=== PATIENT | male | born 1950 | race Caucasian/White ===

== ENCOUNTER 2020-01-16 07:19 | Outpatient (REF) | payer BC, SELFPAY ==
[2020-01-16 07:50] LABS: MANUAL DIFF FLAG NO
[2020-01-16 07:54] LABS: Basophils Absolute Auto 0.1 X10*3/uL (0.0-0.2); Basophils Percent Auto 0.7 % (0-2); Eosinophils Absolute Auto 0.6 X10*3/uL (0.0-0.4); Eosinophils Percent Auto 8.2 % (0-4); Hematocrit 47.2 % (42-52); Hemoglobin 15.1 g/dl (14.0-18.0); Imm Gran Abs Auto 0.04 X10*3/uL (0.00-0.03); Imm Gran Pct Auto 0.6 % (0.0-0.4); Lymphocytes Absolute Auto 0.9 X10*3/uL (1.2-4.9); Lymphocytes Percent Auto 12.8 % (20-40); Mean Corpuscular Hemoglobin 30.5 pg (27.0-33.0); Mean Corpuscular Volume 95.4 fL (80-98); Mean Platelet Volume 10.3 fL (9.4-12.4); Monocytes Absolute Auto 0.7 X10*3/uL (0.1-1.2); Monocytes Percent Auto 9.4 % (2-11); Neutrophils Absolute Auto 4.7 X10*3/uL (2.0-8.3); Neutrophils Percent Auto 68.3 % (45-73); Platelet Count 212 X10*3/uL (160-400); Red Blood Count 4.95 X10*6/uL (4.60-5.80); Red Cell Distribution Width 12.2 % (11.0-16.0); White Blood Count 6.9 X10*3/uL (4.8-10.8)
[2020-01-16 08:20] LABS: Alanine Aminotransferase 12 U/L (0-40); Albumin Level 3.9 g/dL (3.5-5.0); Alkaline Phosphatase 62 U/L (39-117); Anion Gap 10 (12-20); Aspartate Amino Transferase 21 U/L (5-37); Bilirubin Total 0.4 mg/dL (0.0-1.0); Blood Urea Nitrogen 20 mg/dL (9-16); Calcium 8.5 mg/dL (8.4-10.2); Carbon Dioxide 31 mmol/L (22-29); Chloride 103 mmol/L (96-108); Cholesterol 193 mg/dL; Estimated Glomerular Filt Rate 56; Glucose Fasting 95 mg/dL (60-99); HDL Cholesterol 42 mg/dL; LDL Cholesterol Calculated 129 mg/dl; Potassium 4.8 mmol/l (3.3-5.1); Sodium 139 mmol/L (135-145); Total Protein 6.6 g/dL (6.5-8.0); Triglycerides 111 mg/dL
[2020-01-16 08:42] LABS: Prostate Specific Antigen 1.63 ng/mL (<0.05-4.0)
== END 2020-01-16 07:20 | disposition home or self-care (01) ==
LOC: HO.LAB 07:19
PROVIDERS: Visit Provider Internal Medicine Medical Oncology
DX: I10 Essential (primary) hypertension (principal); E66.9 Obesity, unspecified
CPT/HCPCS: 36415; 80053; 80061; 84153; 85025

== ENCOUNTER 2020-09-06 06:44 | Outpatient (REF) | payer BC, SELFPAY ==
[2020-09-06 07:16] LABS: MANUAL DIFF FLAG NO
[2020-09-06 07:19] LABS: Basophils Percent Auto 0.6 % (0-2); Eosinophils Absolute Auto 0.5 X10*3/uL (0.0-0.4); Eosinophils Percent Auto 7.2 % (0-4); Hematocrit 46.6 % (42-52); Imm Gran Abs Auto 0.03 X10*3/uL (0.00-0.03); Imm Gran Pct Auto 0.5 % (0.0-0.4); Mean Corpuscular HGB Conc 32.2 g/dl (31.0-36.0); Mean Corpuscular Hemoglobin 30.8 pg (27.0-33.0); Mean Corpuscular Volume 95.7 fL (80-98); Mean Platelet Volume 10.9 fL (9.4-12.4); Monocytes Absolute Auto 0.6 X10*3/uL (0.1-1.2); Monocytes Percent Auto 8.7 % (2-11); Neutrophils Absolute Auto 4.5 X10*3/uL (2.0-8.3); Platelet Count 180 X10*3/uL (160-400); Red Blood Count 4.87 X10*6/uL (4.60-5.80); Red Cell Distribution Width 12.2 % (11.0-16.0); White Blood Count 6.7 X10*3/uL (4.8-10.8)
[2020-09-06 07:40] LABS: Alanine Aminotransferase 13 U/L (0-40); Albumin Level 3.9 g/dL (3.5-5.0); Alkaline Phosphatase 51 U/L (39-117); Anion Gap 13 (12-20); Aspartate Amino Transferase 21 U/L (5-37); Bilirubin Total 0.6 mg/dL (0.0-1.0); Blood Urea Nitrogen 19 mg/dL (9-16); Calcium 9.1 mg/dL (8.4-10.2); Carbon Dioxide 28 mmol/L (22-29); Chloride 106 mmol/L (96-108); Cholesterol 199 mg/dL; Estimated Glomerular Filt Rate 58; Glucose Random 100 mg/dL (60-115); HDL Cholesterol 39 mg/dL; LDL Cholesterol Calculated 139 mg/dl; Potassium 4.6 mmol/L (3.3-5.1); Sodium 142 mmol/L (135-145); Total Protein 6.4 g/dL (6.5-8.0); Triglycerides 105 mg/dL
[2020-09-06 08:01] LABS: Prostate Specific Antigen 1.61 ng/mL (<0.05-4.0)
== END 2020-09-06 06:45 | disposition home or self-care (01) ==
LOC: HO.LAB 06:44
PROVIDERS: PCP Internal Medicine Medical Oncology; Visit Provider Internal Medicine Medical Oncology
DX: Z12.5 Encounter for screening for malignant neoplasm of prostate (principal); I10 Essential (primary) hypertension; E66.9 Obesity, unspecified; G47.00 Insomnia, unspecified; Z87.891 Personal history of nicotine dependence
CPT/HCPCS: 36415; 80053; 80061; 84153; 85025

== ENCOUNTER 2021-08-20 06:35 | Outpatient (REF) | payer BC, SELFPAY ==
[2021-08-20 07:16] LABS: Basophils Absolute Auto 0.1 X10*3/uL (0.0-0.2); Basophils Percent Auto 0.7 % (0-2); Eosinophils Absolute Auto 0.4 X10*3/uL (0.0-0.4); Eosinophils Percent Auto 5.7 % (0-4); Hematocrit 46.7 % (42.0-52.0); Hemoglobin 14.8 g/dl (14.0-18.0); Imm Gran Abs Auto 0.04 X10*3/uL (0.00-0.03); Imm Gran Pct Auto 0.6 % (0.0-0.4); Lymphocytes Percent Auto 13.7 % (20-40); MANUAL DIFF FLAG NO; Mean Corpuscular HGB Conc 31.7 g/dl (31.0-36.0); Mean Corpuscular Volume 94.7 fL (80.0-98.0); Mean Platelet Volume 10.6 fL (9.4-12.4); Monocytes Absolute Auto 0.8 X10*3/uL (0.1-1.2); Monocytes Percent Auto 10.8 % (2-11); Neutrophils Percent Auto 68.5 % (45-73); Platelet Count 184 X10*3/uL (160-400); Red Blood Count 4.93 X10*6/uL (4.60-5.80); Red Cell Distribution Width 12.7 % (11.0-16.0); White Blood Count 7.2 X10*3/uL (4.8-10.8)
[2021-08-20 07:55] LABS: Alanine Aminotransferase 13 U/L (0-40); Albumin Level 3.9 g/dL (3.5-5.0); Alkaline Phosphatase 58 U/L (39-117); Anion Gap 10 (12-20); Aspartate Amino Transferase 21 U/L (5-37); Bilirubin Total 0.5 mg/dL (0.0-1.0); Blood Urea Nitrogen 19 mg/dL (9-16); Calcium 8.5 mg/dL (8.4-10.2); Carbon Dioxide 30 mmol/L (22-29); Chloride 105 mmol/L (96-108); Cholesterol 207 mg/dL; Estimated Glomerular Filt Rate 53; Glucose Fasting 101 mg/dL (60-99); HDL Cholesterol 45 mg/dL; LDL Cholesterol Calculated 151 mg/dl; Potassium 4.6 mmol/L (3.3-5.1); Sodium 140 mmol/L (135-145); Total Protein 6.6 g/dL (6.5-8.0); Triglycerides 58 mg/dL
[2021-08-20 08:14] LABS: Prostate Specific Antigen 1.66 ng/mL (<0.05-4.0)
== END 2021-08-20 06:36 | disposition home or self-care (01) ==
LOC: HO.LAB 06:35
PROVIDERS: PCP Internal Medicine Medical Oncology; Visit Provider Internal Medicine Medical Oncology
DX: I10 Essential (primary) hypertension (principal); E66.9 Obesity, unspecified; N40.0 Benign prostatic hyperplasia without lower urinary tract symptoms; Z12.5 Encounter for screening for malignant neoplasm of prostate
CPT/HCPCS: 36415; 80053; 80061; 84153; 85025

== ENCOUNTER 2021-12-27 07:37 | Outpatient (REF) | payer BC, SELFPAY ==
[2021-12-27 08:10] LABS: MANUAL DIFF FLAG NO
[2021-12-27 08:30] LABS: Basophils Percent Auto 0.6 % (0-2); Eosinophils Absolute Auto 0.5 X10*3/uL (0.0-0.4); Eosinophils Percent Auto 6.8 % (0-4); Hematocrit 45.8 % (42.0-52.0); Hemoglobin 14.7 g/dl (14.0-18.0); Imm Gran Abs Auto 0.03 X10*3/uL (0.00-0.03); Imm Gran Pct Auto 0.4 % (0.0-0.4); Lymphocytes Absolute Auto 0.9 X10*3/uL (1.2-4.9); Lymphocytes Percent Auto 12.4 % (20-40); Mean Corpuscular HGB Conc 32.1 g/dl (31.0-36.0); Mean Corpuscular Hemoglobin 30.4 pg (27.0-33.0); Mean Corpuscular Volume 94.6 fL (80.0-98.0); Mean Platelet Volume 10.7 fL (9.4-12.4); Monocytes Absolute Auto 0.7 X10*3/uL (0.1-1.2); Monocytes Percent Auto 10.2 % (2-11); Neutrophils Absolute Auto 5.1 x10*3/uL (2.0-8.3); Neutrophils Percent Auto 69.6 % (45-73); Platelet Count 190 X10*3/uL (160-400); Red Blood Count 4.84 X10*6/uL (4.60-5.80); Red Cell Distribution Width 12.3 % (11.0-16.0); White Blood Count 7.3 X10*3/uL (4.8-10.8)
[2021-12-27 09:12] LABS: Erythrocyte Sedimentation Rate 19 MM/HR (0-15)
[2021-12-27 09:21] LABS: Alanine Aminotransferase 12 U/L (0-40); Alkaline Phosphatase 56 U/L (39-117); Anion Gap 14 (12-20); Aspartate Amino Transferase 21 U/L (5-37); Bilirubin Total 0.6 mg/dL (0.0-1.0); Blood Urea Nitrogen 27 mg/dL (9-16); Calcium 8.9 mg/dL (8.4-10.2); Carbon Dioxide 26 mmol/L (22-29); Chloride 105 mmol/L (96-108); Estimated Glomerular Filt Rate 55; Glucose Random 98 mg/dL (60-115); Potassium 4.9 mmol/L (3.3-5.1); Sodium 140 mmol/L (135-145); Total Protein 6.7 g/dL (6.5-8.0)
== END 2021-12-27 07:38 | disposition home or self-care (01) ==
LOC: HO.LAB 07:37
PROVIDERS: PCP Internal Medicine Medical Oncology; Visit Provider Internal Medicine Medical Oncology
DX: I10 Essential (primary) hypertension (principal); N40.0 Benign prostatic hyperplasia without lower urinary tract symptoms; E66.09 Other obesity due to excess calories
CPT/HCPCS: 36415; 80053; 85025; 85652

== ENCOUNTER 2022-04-02 06:36 | Outpatient (REF) | payer BC, SELFPAY ==
[2022-04-02 06:46] LABS: MANUAL DIFF FLAG NO
[2022-04-02 07:32] LABS: Basophils Absolute Auto 0.1 X10*3/uL (0.0-0.2); Basophils Percent Auto 0.7 % (0-2); Eosinophils Absolute Auto 0.5 X10*3/uL (0.0-0.4); Eosinophils Percent Auto 7.9 % (0-4); Hematocrit 49.6 % (42.0-52.0); Hemoglobin 15.9 g/dl (14.0-18.0); Imm Gran Abs Auto 0.06 X10*3/uL (0.00-0.03); Imm Gran Pct Auto 0.9 % (0.0-0.4); Lymphocytes Absolute Auto 0.9 X10*3/uL (1.2-4.9); Lymphocytes Percent Auto 12.6 % (20-40); Mean Corpuscular HGB Conc 32.1 g/dl (31.0-36.0); Mean Corpuscular Hemoglobin 30.2 pg (27.0-33.0); Mean Corpuscular Volume 94.3 fL (80.0-98.0); Mean Platelet Volume 11.2 fL (9.4-12.4); Monocytes Absolute Auto 0.7 X10*3/uL (0.1-1.2); Neutrophils Absolute Auto 4.6 x10*3/uL (2.0-8.3); Neutrophils Percent Auto 67.9 % (45-73); Platelet Count 177 X10*3/uL (160-400); Red Blood Count 5.26 X10*6/uL (4.60-5.80); Red Cell Distribution Width 12.2 % (11.0-16.0); White Blood Count 6.8 X10*3/uL (4.8-10.8)
[2022-04-02 08:04] LABS: Alanine Aminotransferase 11 U/L (0-40); Albumin Level 4.1 g/dL (3.5-5.0); Alkaline Phosphatase 73 U/L (39-117); Anion Gap 12 (12-20); Aspartate Amino Transferase 19 U/L (5-37); Bilirubin Total 0.5 mg/dL (0.0-1.0); Blood Urea Nitrogen 19 mg/dL (9-16); Carbon Dioxide 29 mmol/L (22-29); Chloride 104 mmol/L (96-108); Cholesterol 198 mg/dL; Estimated Glomerular Filt Rate 51; Glucose Fasting 89 mg/dL (60-99); HDL Cholesterol 39 mg/dL; LDL Cholesterol Calculated 138 mg/dl; Potassium 4.8 mmol/L (3.3-5.1); Sodium 140 mmol/L (135-145); Total Protein 6.8 g/dL (6.5-8.0); Triglycerides 109 mg/dL
[2022-04-02 08:12] LABS: Prostate Specific Antigen 1.59 ng/mL (<0.05-4.0)
== END 2022-04-02 06:37 | disposition home or self-care (01) ==
LOC: HO.LAB 06:36
PROVIDERS: PCP Internal Medicine Medical Oncology; Visit Provider Internal Medicine Medical Oncology
DX: Z12.5 Encounter for screening for malignant neoplasm of prostate (principal); N40.0 Benign prostatic hyperplasia without lower urinary tract symptoms; I10 Essential (primary) hypertension
CPT/HCPCS: 36415; 80053; 80061; 84153; 85025

== ENCOUNTER 2023-01-14 13:40 | Emergency (ER) | payer BC, SELFPAY ==
--- NOTE | ~2023-01-14 | US_ITS ---
EXAMINATION: US VENOUS ULTRASOUND WITH DOPPLER LOWER EXTREMITY, RIGHT CLINICAL INFORMATION: Right foot swelling COMPARISON: None available. TECHNIQUE: Ultrasound of the deep veins is performed from the hip to the calf with compression sonography and color and pulse Doppler assessment. Spectral analysis with color-flow imaging is performed. FINDINGS: There is normal venous compression and respiratory variation and augmented flow. The visualized common femoral vein, superficial femoral vein, profunda femoral vein, popliteal vein, and the trifurcation region shows no evidence of deep venous thrombosis. There is no significant popliteal fossa cyst. If the patient's symptoms persist, followup ultrasound in 5 days 7 days might be of value to exclude proximal propagation from a non-visualized calf vein. US/US venous duplex LE RT IMPRESSION: No DVT demonstrated in the right lower extremity.
--- NOTE | ~2023-01-14 | XR_ITS ---
EXAMINATION: XR FOOT, RIGHT CLINICAL INFORMATION: Redness and swelling. Concern for osteomyelitis. COMPARISON: None available. TECHNIQUE: 3 views of the right foot. FINDINGS: There is no focal bone erosion or bone destruction. No abnormal periosteal reaction. No radiographic evidence for osteomyelitis. No air in the soft tissue. Mild to moderate joint narrowing of the IP joints of the toes and the first metatarsal phalangeal joint with small marginal bone spurs this joint space. Small plantar calcaneal spur. XR/XR foot RT 2V IMPRESSION: No radiographic evidence for osteomyelitis. If there is high clinical suspicion of osteomyelitis, MRI would be more sensitive.
[2023-01-14 14:04] VITALS: BP 152/78; PULSE 51; RESP 18; TEMP 36.6; O2SAT 97; BMI 32.2
--- NOTE | 2023-01-14 14:13 | ED_ITS ---
HPI - General Adult General Chief complaint: Extremity Injury, Lower Stated complaint: Right foot pain Time Seen by Provider: 01/14/23 15:41 Source: patient Mode of arrival: ambulatory Limitations: no limitations History of Present Illness HPI narrative: Patient is a 72-year-old male presenting to the emergency department with complaint of right great toe pain and swelling as well as redness for the past few days. He denies any fall or other injury. Denies any numbness or tingling to foot. Has been using ibuprofen with little relief. Denies any history of gout. MD complaint: Toe pain Onset (ago): day(s) Location: right and lower extremity Radiation: non-radiation Severity: severe Quality: aching Pain Consistency: constant Relieving factors: none Exacerbating factors: none Associated symptoms: denies other symptoms Treatments prior to arrival: NSAID Related Data Previous Rx's Medication Instructions Recorded prednisone 20 mg tablet 40 mg (2 x 20 mg) PO DAILY #10 tabs 01/14/23 Allergies Allergy/AdvReac Type Severity Reaction Status Date / Time Penicillins Allergy Mild Unknown Verified 01/14/23 14:00 Review of Systems 2 Review of Systems: As per HPI Yes all other systems are reviewed and are negative Constitutional: Constitutional: Reports as per HPI [facility] Social History Social History Advance Directives: No Physical Exam ED Vital Signs: Vital Signs - 24 hr 01/14/23 14:04 Temperature 97.8 F Pulse Rate 51 Respiratory Rate 18 Blood Pressure 152/78 H Pulse Oximetry 97 Oxygen Delivery Method Room Air BMI result Body Mass Index 32.2 Vital signs have been reviewed and appear to be correct. Blood pressure elevated. Heart rate normal. Respiratory rate normal. Temperature normal. Oxygen saturation normal. Const General: cooperative, healthy appearing and no acute distress Orientation/consciousness: oriented to person, oriented to place, oriented to time and patient oriented x3 Limitations: no limitations HENMT Head: Yes normocephalic and Yes atraumatic Ears: external ears normal General nose exam: Normal external nose present Face and sinus: Yes face symmetric Mouth: oropharynx normal and moist mucous membranes Throat: Yes uvula midline Eyes Pupils: Equal, round and reactive pupils present Neck Neck: Yes normal visual inspection and Yes supple Resp Effort & Inspection: normal respiratory effort and able to speak in complete sentences Auscultation: clear to auscultation bilaterally Cardio Rate: regular rate Rhythm: regular rhythm Heart sounds: S1 normal heart sound present and S2 normal heart sound present GI Palpation (GI): Soft to palpation and nontender Auscultation: normoactive bowel sounds General: Yes no CVA tenderness Back/Spine/Pelvis Back: no CVA tenderness Skin General skin exam: elasticity normal and turgor normal Neuro General: oriented to person, oriented to place, oriented to time, patient oriented x3, moves all extremities, no focal motor deficits and CN's II-XI intact bilaterally Cranial nerves: Yes Equal, round and reactive pupils present Cognition (Neuro): normal cognition Extrem General: Yes full ROM, Yes no pedal edema and Yes no calf tenderness Right lower extremity: foot Details: abnormal to inspection Details: erythematous (MTP and IP joint of first toe), tenderness Location: of the great toe Location: at the MTP joint and at the IP joint, toes with normal ROM and vascular exam Details: dorsalis pedis pulse present, posterior tibial pulse present and normal capillary refill; no unusual warmth Psych Mental Status: mental status grossly normal Affect: normal affect Thought process: Normal thought process present Course Course Course Narrative: RME: 72 yold male presents to the ED for right foot redness and swelling starting from near big toe. Foot swelling and redness. labs, Xray, and Ultrasoun dordered Medical Decision Making Medical Decision Making MDM Narrative: Patient is a 72-year-old male presenting to the emergency department with complaint of right great toe pain and swelling as well as redness for the past few days. On exam patient is awake, A+Ox3, VS WNL, afebrile, normal neurological exam without focal deficits, physical exam findings as above. Given reported symptoms and physical exam findings, initial differential includes gout flare, fracture, osteoarthritis. No concern for DVT but ultrasound ordered by triage provider. Labs notable for elevated uric acid, no leukocytosis, mildly elevated CRP. BUN and creatnine elevated but this appears consistent with baseline. X-ray notable for no fracture or osteomyelitis. No evidence of DVT on ultrasound. My interpretation is in agreement with the radiologist's interpretation. Feel symptoms are likely related to acute gout flare, will treat patient with short course of prednisone. Instructed patient to follow-up with PCP as he has no known history of gout. Discussed diet modifications with patient. Return precautions discussed at bedside. Patient verbalized understanding of and agreement with plan. Differential Diagnosis Differential Diagnoses: The differential diagnosis associated with the presentation includes As per MDM. Admission/Observation Consideration of admission/observation: Escalation of care including admission/observation considered Lab Data [facility] Lab Attestation statement: I reviewed the patient's lab results. As per MDM. 01/14/23 15:12 01/14/23 15:12 Labs: Lab Results 01/14/23 Range/Units 15:12 WBC 6.9 (4.8-10.8) X10*3/uL RBC 4.79 (4.60-5.80) X10*6/uL Hgb 14.6 (14.0-18.0) g/dl Hct 45.2 (42.0-52.0) % MCV 94.4 (80.0-98.0) fL MCH 30.5 (27.0-33.0) pg MCHC 32.3 (31.0-36.0) g/dl RDW 12.7 (11.0-16.0) % Plt Count 174 (160-400) X10*3/uL MPV 10.4 (9.4-12.4) fL Immature Gran % (Auto) 0.3 (0.0-0.4) % Neut % (Auto) 67.9 (45-73) % Lymph % (Auto) 14.3 L (20-40) % [place] % (Auto) 11.1 H (2-11) % Eos % (Auto) 6.0 H (0-4) % Baso % (Auto) 0.4 (0-2) % Lymph # (Auto) 1.0 L (1.2-4.9) X10*3/uL [place] # (Auto) 0.8 (0.1-1.2) X10*3/uL Eos # (Auto) 0.4 (0.0-0.4) X10*3/uL Baso # (Auto) 0.0 (0.0-0.2) X10*3/uL Abs Immat Gran (auto) 0.02 (0.00-0.03) X10*3/uL Absolute Neuts (auto) 4.7 (2.0-8.3) x10*3/uL Absolute Nucleated RBC 0.000 (0.0-0.012) X10*3/uL Nucleated RBC % (auto) 0.0 (0.0-0.2) /100WBC ESR 17 H (0-15) MM/HR Sodium 142 (135-145) mmol/L Potassium 4.2 (3.3-5.1) mmol/L Chloride 106 (96-108) mmol/L Carbon Dioxide 28 (22-29) mmol/L Anion Gap 12 (12-20) BUN 25 H (9-16) mg/dL Creatinine 1.47 H (0.5-1.4) mg/dL Estim Creat Clear Calc 55.0 Estimated GFR 47 Random Glucose 95 (60-115) mg/dL Uric Acid 8.7 H (3.4-7.0) mg/dL Calcium 8.8 (8.4-10.2) mg/dL Total Bilirubin 0.4 (0.0-1.0) mg/dL AST 18 (5-37) U/L ALT 11 (0-40) U/L Alkaline Phosphatase 55 (39-117) U/L C-Reactive Protein 0.85 H (< or = 0.50) mg/dL Total Protein 7.0 (6.5-8.0) g/dL Albumin 3.9 (3.5-5.0) g/dL Independent Interpretation I performed an independent interpretation of an: Plain X-Ray and Ultrasound Interpretation: No evidence of fracture or osteomyelitis on x-ray, no evidence of DVT on ultrasound Radiology Impression Discussion of test interpretation with radiology: I have reviewed the radiologist's reading. Radiologist Impression: XR/XR foot RT 2V IMPRESSION: No radiographic evidence for osteomyelitis. If there is high clinical suspicion of osteomyelitis, MRI would be more sensitive. US/US venous duplex LE RT IMPRESSION: No DVT demonstrated in the right lower extremity. External Record Review External record reviewed: Inpatient record, Office record and Outpatient record Prescription Management I considered prescription management with: Other Discharge Plan Discharge Clinical Impression: Gout involving toe of right foot Qualifiers: Gout etiology: unspecified cause Chronicity: acute Qualified Code(s): M10.9 - Gout, unspecified Patient Disposition: Home, Self-Care Instructions: Low Purine Diet (ED), Gout (ED) Additional Instructions: You were evaluated in the emergency department today for right great toe pain which is likely related to a gout flare. It is possible this is due to dehydration, please increase your fluid intake over the next week. You are being prescribed a short course of steroids called prednisone, please complete the full course as prescribed. Contact your primary care provider for an appointment this week. Return to the emergency department if you develop worsening pain, increased swelling, redness streaking up your leg, fever 100.4? F or greater, or any other concerning symptoms. Prescriptions: New prednisone 20 mg tablet 40 mg PO DAILY Qty: 10 0RF Interventions: ED Discharge Assessment Last Done: 01/14/23 16:16 Discharge Date/Time: 01/14/23 16:18
[2023-01-14 15:18] LABS: MANUAL DIFF FLAG NO
[2023-01-14 15:19] LABS: Basophils Percent Auto 0.4 % (0-2); Eosinophils Absolute Auto 0.4 X10*3/uL (0.0-0.4); Hematocrit 45.2 % (42.0-52.0); Hemoglobin 14.6 g/dl (14.0-18.0); Imm Gran Abs Auto 0.02 X10*3/uL (0.00-0.03); Imm Gran Pct Auto 0.3 % (0.0-0.4); Lymphocytes Percent Auto 14.3 % (20-40); Mean Corpuscular HGB Conc 32.3 g/dl (31.0-36.0); Mean Corpuscular Hemoglobin 30.5 pg (27.0-33.0); Mean Corpuscular Volume 94.4 fL (80.0-98.0); Mean Platelet Volume 10.4 fL (9.4-12.4); Monocytes Absolute Auto 0.8 X10*3/uL (0.1-1.2); Monocytes Percent Auto 11.1 % (2-11); Neutrophils Absolute Auto 4.7 x10*3/uL (2.0-8.3); Neutrophils Percent Auto 67.9 % (45-73); Platelet Count 174 X10*3/uL (160-400); Red Blood Count 4.79 X10*6/uL (4.60-5.80); Red Cell Distribution Width 12.7 % (11.0-16.0); White Blood Count 6.9 X10*3/uL (4.8-10.8)
[2023-01-14 15:32] LABS: Alanine Aminotransferase 11 U/L (0-40); Albumin Level 3.9 g/dL (3.5-5.0); Alkaline Phosphatase 55 U/L (39-117); Anion Gap 12 (12-20); Aspartate Amino Transferase 18 U/L (5-37); Bilirubin Total 0.4 mg/dL (0.0-1.0); Blood Urea Nitrogen 25 mg/dL (9-16); C Reactive Protein 0.85 mg/dL (< or = 0.50); Calcium 8.8 mg/dL (8.4-10.2); Carbon Dioxide 28 mmol/L (22-29); Chloride 106 mmol/L (96-108); Estimated Glomerular Filt Rate 47; Glucose Random 95 mg/dL (60-115); Potassium 4.2 mmol/L (3.3-5.1); Sodium 142 mmol/L (135-145); Uric Acid 8.7 mg/dL (3.4-7.0)
[2023-01-14 16:13] LABS: Erythrocyte Sedimentation Rate 17 MM/HR (0-15)
== END 2023-01-14 16:18 | disposition home or self-care (01) ==
PROVIDERS: Physician Assistant; Emergency Provider Emergency Medicine; PCP Internal Medicine Medical Oncology
DX: M10.9 Gout, unspecified (principal); M79.89 Other specified soft tissue disorders; M79.671 Pain in right foot
CPT/HCPCS: 36415; 73620; 80053; 84550; 85025; 85652; 86140; 93971; 99282; 99284

== ENCOUNTER 2023-01-22 07:08 | Outpatient (REF) | payer BC, SELFPAY ==
[2023-01-22 07:23] LABS: MANUAL DIFF FLAG NO
[2023-01-22 07:30] LABS: Basophils Percent Auto 0.5 % (0-2); Eosinophils Absolute Auto 0.5 X10*3/uL (0.0-0.4); Eosinophils Percent Auto 6.7 % (0-4); Hemoglobin 14.6 g/dl (14.0-18.0); Imm Gran Abs Auto 0.09 X10*3/uL (0.00-0.03); Imm Gran Pct Auto 1.2 % (0.0-0.4); Lymphocytes Percent Auto 12.9 % (20-40); Mean Corpuscular HGB Conc 31.7 g/dl (31.0-36.0); Mean Corpuscular Volume 94.7 fL (80.0-98.0); Mean Platelet Volume 10.6 fL (9.4-12.4); Monocytes Absolute Auto 0.7 X10*3/uL (0.1-1.2); Monocytes Percent Auto 9.8 % (2-11); Neutrophils Absolute Auto 5.2 x10*3/uL (2.0-8.3); Neutrophils Percent Auto 68.9 % (45-73); Platelet Count 173 X10*3/uL (160-400); Red Blood Count 4.86 X10*6/uL (4.60-5.80); Red Cell Distribution Width 12.9 % (11.0-16.0); White Blood Count 7.5 X10*3/uL (4.8-10.8)
[2023-01-22 07:59] LABS: Anion Gap 9 (12-20); Blood Urea Nitrogen 29 mg/dL (9-16); Carbon Dioxide 29 mmol/L (22-29); Chloride 106 mmol/L (96-108); Estimated Glomerular Filt Rate 55; Glucose Fasting 99 mg/dL (60-99); Potassium 4.2 mmol/L (3.3-5.1); Sodium 140 mmol/L (135-145)
[2023-01-22 08:00] LABS: Alanine Aminotransferase 11 U/L (0-40); Albumin Level 3.7 g/dL (3.5-5.0); Alkaline Phosphatase 52 U/L (39-117); Aspartate Amino Transferase 19 U/L (5-37); Bilirubin Total 0.5 mg/dL (0.0-1.0); Cholesterol 198 mg/dL (<200); HDL Cholesterol 42 mg/dL (>40); LDL Cholesterol Calculated 139 mg/dL (<100); Total Protein 6.6 g/dL (6.5-8.0); Triglycerides 87 mg/dL (<150)
== END 2023-01-22 07:09 | disposition home or self-care (01) ==
LOC: HO.LAB 07:08
PROVIDERS: Visit Provider Internal Medicine Medical Oncology
DX: I10 Essential (primary) hypertension (principal); E66.9 Obesity, unspecified
CPT/HCPCS: 36415; 80053; 80061; 85025

== ENCOUNTER 2023-04-07 07:08 | Outpatient (REF) | payer BC, SELFPAY ==
[2023-04-07 07:21] LABS: MANUAL DIFF FLAG NO
[2023-04-07 07:46] LABS: Basophils Absolute Auto 0.1 X10*3/uL (0.0-0.2); Basophils Percent Auto 0.6 % (0-2); Eosinophils Absolute Auto 0.2 X10*3/uL (0.0-0.4); Eosinophils Percent Auto 2.1 % (0-4); Hematocrit 47.8 % (42.0-52.0); Hemoglobin 15.3 g/dl (14.0-18.0); Imm Gran Abs Auto 0.05 X10*3/uL (0.00-0.03); Imm Gran Pct Auto 0.6 % (0.0-0.4); Lymphocytes Absolute Auto 1.3 X10*3/uL (1.2-4.9); Lymphocytes Percent Auto 14.7 % (20-40); Mean Corpuscular Hemoglobin 30.7 pg (27.0-33.0); Mean Corpuscular Volume 95.8 fL (80.0-98.0); Mean Platelet Volume 11.1 fL (9.4-12.4); Monocytes Absolute Auto 0.9 X10*3/uL (0.1-1.2); Monocytes Percent Auto 10.5 % (2-11); Neutrophils Absolute Auto 6.1 x10*3/uL (2.0-8.3); Neutrophils Percent Auto 71.5 % (45-73); Platelet Count 194 X10*3/uL (160-400); Red Blood Count 4.99 X10*6/uL (4.60-5.80); Red Cell Distribution Width 12.5 % (11.0-16.0); White Blood Count 8.5 X10*3/uL (4.8-10.8)
[2023-04-07 07:58] LABS: Alanine Aminotransferase 15 U/L (0-40); Albumin Level 3.9 g/dL (3.5-5.0); Alkaline Phosphatase 59 U/L (39-117); Anion Gap 12 (12-20); Aspartate Amino Transferase 20 U/L (5-37); Bilirubin Total 0.5 mg/dL (0.0-1.0); Blood Urea Nitrogen 34 mg/dL (9-16); Carbon Dioxide 28 mmol/L (22-29); Chloride 106 mmol/L (96-108); Estimated Glomerular Filt Rate 40; Glucose Random 92 mg/dL (60-115); Potassium 4.2 mmol/L (3.3-5.1); Sodium 142 mmol/L (135-145); Total Protein 7.1 g/dL (6.5-8.0)
[2023-04-07 08:15] LABS: Prostate Specific Antigen 1.73 ng/mL (<0.05-4.0)
== END 2023-04-07 07:09 | disposition home or self-care (01) ==
LOC: HO.LAB 07:08
PROVIDERS: PCP Internal Medicine Medical Oncology; Visit Provider Internal Medicine Medical Oncology
DX: Z12.5 Encounter for screening for malignant neoplasm of prostate (principal); N40.0 Benign prostatic hyperplasia without lower urinary tract symptoms; E66.9 Obesity, unspecified; I10 Essential (primary) hypertension; H61.20 Impacted cerumen, unspecified ear
CPT/HCPCS: 36415; 80053; 84153; 84550; 85025

== ENCOUNTER 2023-06-08 07:02 | Outpatient (REF) | payer BC, SELFPAY ==
[2023-06-08 07:19] LABS: MANUAL DIFF FLAG NO
[2023-06-08 07:55] LABS: Basophils Absolute Auto 0.1 X10*3/uL (0.0-0.2); Basophils Percent Auto 0.8 % (0-2); Eosinophils Absolute Auto 0.5 X10*3/uL (0.0-0.4); Eosinophils Percent Auto 7.7 % (0-4); Hematocrit 48.7 % (42.0-52.0); Hemoglobin 15.6 g/dl (14.0-18.0); Imm Gran Abs Auto 0.05 X10*3/uL (0.00-0.03); Imm Gran Pct Auto 0.8 % (0.0-0.4); Lymphocytes Absolute Auto 0.8 X10*3/uL (1.2-4.9); Mean Corpuscular Hemoglobin 31.1 pg (27.0-33.0); Mean Corpuscular Volume 97.2 fL (80.0-98.0); Monocytes Absolute Auto 0.6 X10*3/uL (0.1-1.2); Monocytes Percent Auto 9.7 % (2-11); Neutrophils Absolute Auto 4.4 x10*3/uL (2.0-8.3); Platelet Count 186 X10*3/uL (160-400); Red Blood Count 5.01 X10*6/uL (4.60-5.80); White Blood Count 6.4 X10*3/uL (4.8-10.8)
[2023-06-08 08:29] LABS: Alanine Aminotransferase 14 U/L (0-40); Albumin Level 3.8 g/dL (3.5-5.0); Alkaline Phosphatase 68 U/L (39-117); Anion Gap 11 (12-20); Aspartate Amino Transferase 20 U/L (5-37); Bilirubin Total 0.5 mg/dL (0.0-1.0); Blood Urea Nitrogen 27 mg/dL (9-16); Calcium 9.3 mg/dL (8.4-10.2); Carbon Dioxide 31 mmol/L (22-29); Chloride 107 mmol/L (96-108); Estimated Glomerular Filt Rate 43; Glucose Random 92 mg/dL (60-115); Potassium 4.5 mmol/L (3.3-5.1); Sodium 144 mmol/L (135-145); Total Protein 7.1 g/dL (6.5-8.0); Uric Acid 7.6 mg/dL (3.4-7.0)
== END 2023-06-08 07:03 | disposition home or self-care (01) ==
LOC: HO.LAB 07:02
PROVIDERS: PCP Internal Medicine Medical Oncology; Visit Provider Internal Medicine Medical Oncology
DX: Z00.00 Encounter for general adult medical examination without abnormal findings (principal); I10 Essential (primary) hypertension; N40.0 Benign prostatic hyperplasia without lower urinary tract symptoms; E66.9 Obesity, unspecified
CPT/HCPCS: 36415; 80053; 84550; 85025

== ENCOUNTER 2023-09-29 07:11 | Outpatient (REF) | payer BC, SELFPAY ==
[2023-09-29 07:26] LABS: MANUAL DIFF FLAG NO
[2023-09-29 08:29] LABS: Basophils Absolute Auto 0.1 X10*3/uL (0.0-0.2); Basophils Percent Auto 1.1 % (0-2); Eosinophils Absolute Auto 0.6 X10*3/uL (0.0-0.4); Eosinophils Percent Auto 9.2 % (0-4); Hematocrit 50.1 % (42.0-52.0); Hemoglobin 16.1 g/dl (14.0-18.0); Imm Gran Abs Auto 0.06 X10*3/uL (0.00-0.03); Imm Gran Pct Auto 0.9 % (0.0-0.4); Lymphocytes Percent Auto 14.5 % (20-40); Mean Corpuscular HGB Conc 32.1 g/dl (31.0-36.0); Mean Corpuscular Hemoglobin 31.4 pg (27.0-33.0); Mean Corpuscular Volume 97.7 fL (80.0-98.0); Monocytes Absolute Auto 0.6 X10*3/uL (0.1-1.2); Monocytes Percent Auto 9.8 % (2-11); Neutrophils Absolute Auto 4.2 x10*3/uL (2.0-8.3); Neutrophils Percent Auto 64.5 % (45-73); Platelet Count 180 X10*3/uL (160-400); Red Blood Count 5.13 X10*6/uL (4.60-5.80); Red Cell Distribution Width 12.8 % (11.0-16.0); White Blood Count 6.6 X10*3/uL (4.8-10.8)
[2023-09-29 09:01] LABS: Alanine Aminotransferase 5 U/L (0-40); Alkaline Phosphatase 69 U/L (39-117); Anion Gap 14 (12-20); Aspartate Amino Transferase 17 U/L (5-37); Bilirubin Total 0.6 mg/dL (0.0-1.0); Blood Urea Nitrogen 30 mg/dL (9-16); Calcium 9.6 mg/dL (8.4-10.2); Carbon Dioxide 27 mmol/L (22-29); Chloride 104 mmol/L (96-108); Cholesterol 179 mg/dL (<200); Estimated Glomerular Filt Rate 41; Glucose Fasting 100 mg/dL (60-99); HDL Cholesterol 45 mg/dL (>40); LDL Cholesterol Calculated 117 mg/dL (<100); Potassium 4.2 mmol/L (3.3-5.1); Sodium 141 mmol/L (135-145); Total Protein 7.2 g/dL (6.5-8.0); Triglycerides 89 mg/dL (<150); Uric Acid 6.3 mg/dL (3.4-7.0)
== END 2023-09-29 07:12 | disposition home or self-care (01) ==
LOC: HO.LAB 07:11
PROVIDERS: PCP Internal Medicine Medical Oncology; Visit Provider Internal Medicine Medical Oncology
DX: I10 Essential (primary) hypertension (principal); E66.9 Obesity, unspecified; N40.0 Benign prostatic hyperplasia without lower urinary tract symptoms
CPT/HCPCS: 36415; 80053; 80061; 84550; 85025

== ENCOUNTER 2024-04-10 06:50 | Outpatient (REF) | payer BC, SELFPAY ==
[2024-04-10 07:03] LABS: MANUAL DIFF FLAG NO
[2024-04-10 07:15] LABS: Basophils Absolute Auto 0.1 X10*3/uL (0.0-0.2); Basophils Percent Auto 0.7 % (0-2); Eosinophils Absolute Auto 0.5 X10*3/uL (0.0-0.4); Eosinophils Percent Auto 6.4 % (0-4); Hematocrit 47.5 % (42.0-52.0); Hemoglobin 15.3 g/dl (14.0-18.0); Imm Gran Abs Auto 0.04 X10*3/uL (0.00-0.03); Imm Gran Pct Auto 0.5 % (0.0-0.4); Lymphocytes Absolute Auto 0.9 X10*3/uL (1.2-4.9); Lymphocytes Percent Auto 11.9 % (20-40); Mean Corpuscular HGB Conc 32.2 g/dl (31.0-36.0); Mean Corpuscular Hemoglobin 30.6 pg (27.0-33.0); Mean Platelet Volume 11.2 fL (9.4-12.4); Monocytes Absolute Auto 0.7 X10*3/uL (0.1-1.2); Monocytes Percent Auto 9.4 % (2-11); Neutrophils Absolute Auto 5.4 x10*3/uL (2.0-8.3); Neutrophils Percent Auto 71.1 % (45-73); Platelet Count 159 X10*3/uL (160-400); Red Cell Distribution Width 12.8 % (11.0-16.0); White Blood Count 7.6 X10*3/uL (4.8-10.8)
[2024-04-10 08:50] LABS: Alanine Aminotransferase 19 U/L (0-40); Alkaline Phosphatase 74 U/L (39-117); Anion Gap 12 (12-20); Aspartate Amino Transferase 28 U/L (5-37); Bilirubin Total 0.6 mg/dL (0.0-1.0); Blood Urea Nitrogen 23 mg/dL (9-16); Calcium 8.6 mg/dL (8.4-10.2); Carbon Dioxide 24 mmol/L (22-29); Chloride 109 mmol/L (96-108); Cholesterol 157 mg/dL (<200); Estimated Glomerular Filt Rate 54; Glucose Fasting 91 mg/dL (60-99); HDL Cholesterol 42 mg/dL (>40); LDL Cholesterol Calculated 103 mg/dL (<100); Potassium 4.3 mmol/L (3.3-5.1); Sodium 141 mmol/L (135-145); Total Protein 7.4 g/dL (6.5-8.0); Triglycerides 62 mg/dL (<150)
== END 2024-04-10 06:51 | disposition home or self-care (01) ==
LOC: HO.LAB 06:50
PROVIDERS: PCP Internal Medicine Medical Oncology; Visit Provider Internal Medicine Medical Oncology
DX: I10 Essential (primary) hypertension (principal); E66.9 Obesity, unspecified
CPT/HCPCS: 36415; 80053; 80061; 85025

== ENCOUNTER 2024-07-20 07:05 | Outpatient (REF) | payer BC, SELFPAY ==
[2024-07-20 07:21] LABS: MANUAL DIFF FLAG NO
[2024-07-20 07:43] LABS: Basophils Absolute Auto 0.1 X10*3/uL (0.0-0.2); Basophils Percent Auto 0.8 % (0-2); Eosinophils Absolute Auto 0.4 X10*3/uL (0.0-0.4); Hematocrit 49.5 % (42.0-52.0); Hemoglobin 15.6 g/dl (14.0-18.0); Imm Gran Abs Auto 0.08 X10*3/uL (0.00-0.03); Imm Gran Pct Auto 1.2 % (0.0-0.4); Lymphocytes Absolute Auto 0.9 X10*3/uL (1.2-4.9); Mean Corpuscular HGB Conc 31.5 g/dl (31.0-36.0); Mean Corpuscular Hemoglobin 30.4 pg (27.0-33.0); Mean Corpuscular Volume 96.3 fL (80.0-98.0); Mean Platelet Volume 11.1 fL (9.4-12.4); Monocytes Absolute Auto 0.8 X10*3/uL (0.1-1.2); Monocytes Percent Auto 11.5 % (2-11); Neutrophils Absolute Auto 4.3 x10*3/uL (2.0-8.3); Neutrophils Percent Auto 66.5 % (45-73); Platelet Count 160 X10*3/uL (160-400); Red Blood Count 5.14 X10*6/uL (4.60-5.80); Red Cell Distribution Width 13.2 % (11.0-16.0); White Blood Count 6.5 X10*3/uL (4.8-10.8)
[2024-07-20 08:10] LABS: Alanine Aminotransferase 11 U/L (0-40); Albumin Level 4.1 g/dL (3.5-5.0); Alkaline Phosphatase 69 U/L (39-117); Anion Gap 10 (12-20); Aspartate Amino Transferase 21 U/L (5-37); Bilirubin Total 0.6 mg/dL (0.0-1.0); Blood Urea Nitrogen 22 mg/dL (9-16); Calcium 9.2 mg/dL (8.4-10.2); Carbon Dioxide 28 mmol/L (22-29); Chloride 108 mmol/L (96-108); Cholesterol 195 mg/dL (<200); Estimated Glomerular Filt Rate 53; Glucose Fasting 90 mg/dL (60-99); HDL Cholesterol 48 mg/dL (>40); LDL Cholesterol Calculated 129 mg/dL (<100); Potassium 4.4 mmol/L (3.3-5.1); Sodium 142 mmol/L (135-145); Total Protein 7.1 g/dL (6.5-8.0); Triglycerides 92 mg/dL (<150)
[2024-07-20 08:17] LABS: Uric Acid 7.9 mg/dL (3.4-7.0)
[2024-07-20 08:27] LABS: Prostate Specific Antigen 2.35 ng/mL (<0.05-4.0)
== END 2024-07-20 07:06 | disposition home or self-care (01) ==
LOC: HO.LAB 07:05
PROVIDERS: PCP Internal Medicine Medical Oncology; Visit Provider Internal Medicine Medical Oncology
DX: I10 Essential (primary) hypertension (principal); E66.9 Obesity, unspecified; E66.3 Overweight; M10.071 Idiopathic gout, right ankle and foot; R35.1 Nocturia; Z12.5 Encounter for screening for malignant neoplasm of prostate
CPT/HCPCS: 36415; 80053; 80061; 84153; 84550; 85025

== ENCOUNTER 2025-01-24 07:53 | Outpatient (REF) | payer MEDICARE, SELFPAY ==
[2025-01-24 08:05] LABS: MANUAL DIFF FLAG NO
[2025-01-24 08:39] LABS: Hematocrit 47.8 % (42.0-52.0); Hemoglobin 15.2 g/dl (14.0-18.0); Imm Gran Abs Auto 0.03 X10*3/uL (0.00-0.03); Imm Gran Pct Auto 0.5 % (0.0-0.4); Lymphocytes Absolute Auto 0.9 X10*3/uL (1.2-4.9); Mean Corpuscular HGB Conc 31.8 g/dl (31.0-36.0); Mean Corpuscular Hemoglobin 30.2 pg (27.0-33.0); Mean Corpuscular Volume 95.0 fL (80.0-98.0); NRBC Abs Auto 0.000 X10*3/uL (0.0-0.012); NRBC Pct Auto 0.0 /100WBC (0.0-0.2); Platelet Count 158 X10*3/uL (160-400); Red Blood Count 5.03 X10*6/uL (4.60-5.80); White Blood Count 6.4 X10*3/uL (4.8-10.8)
[2025-01-24 09:04] LABS: Alanine Aminotransferase 18 U/L (0-40); Albumin Level 4.3 g/dL (3.5-5.0); Alkaline Phosphatase 74 U/L (39-117); Anion Gap 12 (12-20); Aspartate Amino Transferase 31 U/L (5-37); Blood Urea Nitrogen 24 mg/dL (9-16); Calcium 9.0 mg/dL (8.4-10.2); Carbon Dioxide 26 mmol/L (22-29); Chloride 108 mmol/L (96-108); Cholesterol 172 mg/dL (<200); Estimated Glomerular Filt Rate 51; HDL Cholesterol 46 mg/dL (>40); Potassium 4.3 mmol/L (3.3-5.1); Sodium 142 mmol/L (135-145); Total Protein 7.2 g/dL (6.5-8.0); Triglycerides 92 mg/dL (<150); Uric Acid 8.1 mg/dL (3.4-7.0)
[2025-01-24 11:20] LABS: Prostate Specific Antigen 1.65 ng/mL (<0.05-4.0)
--- OUTSIDE RECORDS SUMMARY | 2025-01-24 15:27 | XMS_ITS | Patient Health Record ---
[facility] Address [address] [place] [address] Care Team Providers Care Fuel Verification Technician Name Role Phone Josh Caballero MD Primary Care Provider Unavailab LocoLauren Unavailable [phone] Allergies Allergen (clinical drug ingredient) Drug/Non Drug Allergy documented on EMR Reaction Allergy Type Onset Date Status Penicillin (uncoded) mouth sores Allergy Active amoxicillin Amoxicillin mouth sores Drug Allergy A ctive Reason For Referral No Information Medications Medication SIG (Take, Route, Fr equency, Duration) Notes Start Date End Date Status hydrALAZINE HCl 10 MG 1 tablet with food Orally Four times a day; Duration: 30 day(s) Active Atenolol 100 MG Orally Acti ve Social History Tobacco Use: Social History Observation Description Date Details (start date - stop date) Former Smoker NA - NA Tobacco Use/Smoking Question Answer Notes Are you a: former smoker Alcohol Screen Question Answer Notes Did you have a drink contain ing alcohol in the past year? Yes How often did you have a dri nk containing alcohol in the past year? 4 or more times a week (4 points) How many drinks did you have on a typical day when you were drinking in the past year? 1 or 2 drinks (0 point) How often did you have 6 or more drinks on one occasion in the past year? Never (0 point) Points 4 Interpretation Positive Tobacco use other than smoking: Question Answer Notes Are you an other tobacco user? 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) Active confirmed Plan Of Treatment No Information Insurance Providers Payer Name Payer Address Payer Phone Subscriber Number Group Number Insured Name Patient Relationship to Insured Coverage Start Date Coverage End Date Brayden Jara [address] [place] [address] [id number] Montez Larkin Self - patient is the insured [employer] [address] [facility] [place] [address] [id number] Montez Larkin Self - patient is the insured Medical (General) History Medical History History ICD Code Hiatal hernia High blood pressure Measles Mumps Chicken pox Surgical History Surgery Date(Month/Year) hernia
== END 2025-01-24 07:54 | disposition home or self-care (01) ==
LOC: HO.LAB 07:53
PROVIDERS: PCP Internal Medicine Medical Oncology; Visit Provider Internal Medicine Medical Oncology
DX: I10 Essential (primary) hypertension (principal); N40.0 Benign prostatic hyperplasia without lower urinary tract symptoms; E66.9 Obesity, unspecified; R35.1 Nocturia; M10.071 Idiopathic gout, right ankle and foot; Z12.5 Encounter for screening for malignant neoplasm of prostate
CPT/HCPCS: 36415; 80053; 80061; 84153; 84550; 85025